=== PATIENT | female | born 1970 | race Caucasian/White ===

== ENCOUNTER 2017-07-14 22:59 | Emergency (ER) | payer OTHER ==
[~2017-07-14] VITALS: Ht 170.2 cm; Wt 62.0 kg
[~2017-07-14 22:59] MED LIST: DICL50 PO; LORA-474 PO; NAPR550 PO; ROBA750T3 PO; TRAM50TA PO
[2017-07-14 23:02] VITALS: BP 136/63; PULSE 59; RESP 16; TEMP 97.9; O2SAT 100
--- NOTE | 2017-07-14 23:28 | PD ---
HPI Chief Complaint: Fall Time Seen by Provider: 23:20 Travel History International Travel<30 days: No Contact w/Intl Traveler<30days: No Traveled to known affect area: No History of Present Illness HPI 46-year-old female here with left arm pain. She slipped on wet floor and fell on outstretched left hand prior to arrival. She has pain primarily in her left wrist but radiates up the left forearm and up to the left shoulder. Pain is worse with movement. No other injuries. PFSH Past Medical History Diminished Hearing: No Musculoskeletal: Yes (BACK PAIN) Social History Alcohol Use: Yes Tobacco Use: Yes Substance Use: No Allergies-Medications (Allergen,Severity, Reaction): Coded Allergies: No Known Allergies (Verified , 08/03/16) Reported Meds & Prescriptions Reported Meds & Active Scripts Active Lortab (Hydrocodone-Acetaminophen) 5-325 Mg Tab 1 Tab PO Q6H PRN Review of Systems Except as stated in HPI: all other systems reviewed are Neg Physical Exam Narrative GENERAL: Well-nourished female in no acute distress SKIN: Warm and dry. HEAD: Atraumatic. Normocephalic. EYES: Pupils equal and round. No scleral icterus. No injection or drainage. ENT: No nasal bleeding or discharge. Mucous membranes pink and moist. NECK: Trachea midline. No JVD. CARDIOVASCULAR: Regular rate and rhythm. No murmur appreciated. RESPIRATORY: No accessory muscle use. Clear to auscultation. Breath sounds equal bilaterally. MUSCULOSKELETAL: Tender to palpation left wrist. There is some soft tissue swelling. There is pain with range of motion of the left wrist limiting range of motion. Distal sensation is intact. 2+ radial pulse. No tenderness to palpation of the left elbow, proximal arm or shoulder. NEUROLOGICAL: Awake and alert. No obvious cranial nerve deficits. Motor grossly within normal limits. Normal speech. Data Data Last Documented VS Vital Signs Date Time Temp Pulse Resp B/P (MAP) Pulse Ox O2 Delivery O2 Flow Rate FiO2 07/14/17 23:02 97.9 59 16 136/63 (87) 100 Room Air Orders Orders Wrist, Complete (Ppi7guu) (07/14/17 ) Ice/Cold Pack (07/14/17 23:25) Elbow, Limited (Ap&Lat) (07/14/17 ) Mandatory Outpatient Referral (07/14/17 23:59) Splint Or Brace Apply/Monitor (07/14/17 23:59) Acetamin-Hydrocod 325-5 Mg (Arden 5-325 (07/15/17 00:00) Ondansetron Odt (Zofran Odt) (07/15/17 00:00) [facility] Medical Decision Making Medical Screen Exam Complete: Yes Emergency Medical Condition: Yes Medical Record Reviewed: Yes Differential Diagnosis Fracture, dislocation, sprain, strain, contusion Narrative Course X-ray imaging reveals a slightly comminuted and angulated has already is fracture. A sugar tong splint will be applied. Mandatory outpatient referral for outpatient follow-up with orthopedic surgeon will be provided. Stable for discharge. Diagnosis Primary Impression: Left wrist fracture Qualified Codes: S62.102A - Fracture of unspecified carpal bone, left wrist, initial encounter for closed fracture Referrals: Jefry Rodgers Jr., MD Additional Instructions: Do not remove the splint. Pain medication as needed. Do not drive or drink alcohol when taking this medication. Follow-up with an orthopedist such as Dr. Rodgers in the next 3-5 days. Return for any emergent medical conditions. Med/Other Pt SpecificInfo: Prescription(s) given, Orthopedic Instructions Scripts Hydrocodone-Acetaminophen (Lortab) 5-325 Mg Tab 1 TAB PO Q6H Y for PAIN, #15 TAB 0 Refills Prov: Anju Patel DO 07/15/17 Disposition: 01 DISCHARGE HOME Condition: Stable Sohail Pulido Jul 14, 2017 23:28
[2017-07-15] MEDS ORDERED: ONDANSETRON ODT 4 MG TAB PO ONE
[2017-07-15] MEDS ORDERED: ACETAMINOPHEN/HYDROcodone 325 MG/5 MG TAB PO ONE
[2017-07-15] MEDS ORDERED: HYDR-3533 PO (00:01)
--- NOTE | 2017-07-15 00:12 | RADRPT ---
EXAM DATE/TIME: 07/14/2017 23:37 [facility] COMPARISON: No previous studies available for comparison. INDICATIONS : Pt fell at work, landed on left wrist MEDICAL HISTORY : None. SURGICAL HISTORY : None. ENCOUNTER: Initial ACUITY: 1 day PAIN SCORE: 10/10 LOCATION: Left Wrist FINDINGS: There is a slightly comminuted mildly displaced fracture of the distal radius with apex anterior angu lation. There is no dislocation at the wrist joint. There is overlying soft tissue swelling. No fract ures identified. CONCLUSION: 1. Slightly comminuted intra-articular fracture of the distal left radius. No dislocation. James Izaguirre MD on July 15, 2017 at 0:08 Board Certified Radiologist. This report was verified electronically.
--- NOTE | 2017-07-15 00:14 | RADRPT ---
EXAM DATE/TIME: 07/14/2017 23:40 [facility] COMPARISON: No previous studies available for comparison. INDICATIONS : Pt fell at work, landed on left wrist MEDICAL HISTORY : None. SURGICAL HISTORY : None. ENCOUNTER: Initial ACUITY: 1 day PAIN SCORE: 5/10 LOCATION: Left Elbow FINDINGS: Two view examination of the left elbow demonstrates no soft tissue swelling, joint effusion, fracture or dislocation. Bony mineralization is normal. CONCLUSION: Normal examination for a patient of this age. James Izaguirre MD on July 15, 2017 at 0:10 Board Certified Radiologist. This report was verified electronically.
== END 2017-07-15 01:20 | disposition home or self-care (01) ==
LOC: NEPD 22:59
DX: S62.102A Fracture of unspecified carpal bone, left wrist, initial encounter for closed fracture (principal); W01.0XXA Fall on same level from slipping, tripping and stumbling without subsequent striking against object, initial encounter; F17.290 Nicotine dependence, other tobacco product, uncomplicated
CPT/HCPCS: 29125; 73070; 73110

== ENCOUNTER 2017-07-17 16:55 | Emergency (ER) | payer OTHER ==
[~2017-07-17] VITALS: Ht 170.2 cm; Wt 66.0 kg
[~2017-07-17 16:55] MED LIST changes: -DICL50 PO; +HYDR-3533 PO; -LORA-474 PO; -NAPR550 PO; -ROBA750T3 PO; -TRAM50TA PO
[2017-07-17 16:58] VITALS: BP 120/70; PULSE 72; RESP 20; TEMP 98.7; O2SAT 99
--- NOTE | 2017-07-17 20:08 | PD ---
HPI Chief Complaint: Injury Time Seen by Provider: 20:04 Travel History International Travel<30 days: No Contact w/Intl Traveler<30days: No Traveled to known affect area: No History of Present Illness HPI 46-year-old white female presents to emergency Department with complaints of swelling of her left hand after sustaining a left wrist fracture on 07/14/17. The patient slipped and fell at work. She states that she is working with [employer] to get into orthopedics. She states that she has enough pain medicine for the next few days. She denies any numbness or tingling. She does states she has difficulty moving her fingers due to swelling and pain. She feels that the splint is too tight. PFSH Past Medical History Arthritis: Yes Diminished Hearing: No Herniated Disk: Yes (l3-l4,compressed thoracic) Musculoskeletal: Yes (BACK PAIN) LMP: 07/08/17 Social History Alcohol Use: Yes Tobacco Use: Yes Substance Use: No Allergies-Medications (Allergen,Severity, Reaction): Coded Allergies: No Known Allergies (Verified , 08/03/16) Reported Meds & Prescriptions Reported Meds & Active Scripts Active Lortab (Hydrocodone-Acetaminophen) 5-325 Mg Tab 1 Tab PO Q6H PRN Review of Systems Except as stated in HPI: all other systems reviewed are Neg Physical Exam Narrative GENERAL: This is a well-nourished, well-developed patient, in no apparent distress. SKIN: No rashes, ecchymoses or lesions. Warm and dry. HEAD: Atraumatic. Normocephalic. EYES: PERRL, EOMI, no discharge or injection. No scleral icterus. EARS: Clear NOSE: Nasal turbinates appear normal. THROAT: Mucosa pink and moist. Airway patent. NECK: Trachea midline. supple, moves head freely. LUNGS: Clear to auscultation. CV: Regular in rhythm. ABDOMEN: Soft nontender. EXT: No clubbing cyanosis or edema. Patient has a sugar tong splint on the left arm. The splint appears to be appropriate. She has dependent post fracture edema in the hand. This is normal. The splint is taken down and the soft roll is not constricting. I see no evidence of any skin breakdown. She is able to move her fingers. She has intact gross sensation. The splint is reapplied. Data Data Last Documented VS Vital Signs Date Time Temp Pulse Resp B/P (MAP) Pulse Ox O2 Delivery O2 Flow Rate FiO2 07/17/17 16:58 98.7 72 20 120/70 (87) 99 Room Air MDM Medical Decision Making Medical Screen Exam Complete: Yes Emergency Medical Condition: Yes Medical Record Reviewed: Yes Differential Diagnosis MDM: High Differential diagnoses: Fracture, sprain, strain, dislocation, contusion, neurovascular injury, splint care/fracture care Narrative Course The patient splint does not appear to be too tight. She has dependent edema in her hand from hanging down a nurse sling. I have expressed to her she needs to keep her arm up and elevated above the level of heart. Having her hand in the sling is not appropriate enough to help prevent swelling. Her splint has been taken off and reapplied by myself. Does not appear to be too constricting at this time. The patient does state she feels better. The patient states that she has enough pain medication at this time. This is left wrist fracture recheck, splint manipulation Diagnosis Primary Impression: left wrist fracture recheck Additional Impression: splint manipulation Patient Instructions: General Instructions Additional Instructions: Rest. Elevation above the heart at all times. May apply ice for additional swelling and pain. Continue take her pain medication as directed. May also take an additional ibuprofen. No work for the next 4 days. Follow-up with orthopedics in the next 1 -4 days Return to the ER for any problems. Disposition: 01 DISCHARGE HOME Condition: Stable James Jean Jul 17, 2017 20:08
== END 2017-07-17 20:13 | disposition home or self-care (01) ==
LOC: NEPK 16:55
DX: S62.102D Fracture of unspecified carpal bone, left wrist, subsequent encounter for fracture with routine healing (principal); W01.0XXD Fall on same level from slipping, tripping and stumbling without subsequent striking against object, subsequent encounter
CPT/HCPCS: 99283

== ENCOUNTER → 2017-10-28 | Day surgery (SDC) | payer OTHER ==
--- NOTE | 2017-10-25 11:42 | TH ---
cc: MILES LARIOS M.D. DATE: DATE OF : 1970 PROCEDURE TO BE PERFORMED Revision augmentation mastopexy. HISTORY OF PRESENT ILLNESS Ms. Preeti Ojeda is a pleasant 45-year-old female who back in November of last year underwent a mastopexy augmentation. She also at the time had a thigh lift. She has done well. She wishes to go a little bigger on her breast volume the reason for which we are going to put 415 cc SRF from the current 265 cc. PAST MEDICAL HISTORY Unremarkable except for a compressed disc at T9. MEDICATIONS Tramadol. ALLERGIES No allergies. HABITS Benign. REVIEW OF SYSTEMS Unremarkable. PHYSICAL EXAMINATION GENERAL APPEARANCE: The patient is a well-developed female in no acute distress. Body habitus is within normal limits. There appear to be no deformities. Appears to have attention to grooming. HEENT: Conjunctiva and lids are within normal anatomical limits. The pupils are reactive to light and accommodation, size and symmetry. There is no evidence of exudate, hemorrhage, or vessel change. The external inspection of the ears and nose fails to demonstrate any pathology, scars, lesions, or masses. Nasal mucosa, septum, and turbinates appear to be well-hydrated as well as the lips and gums. No evidence of masses in the hypopharynx or submental area. CHEST: The patient shows no evidence of intercostal retractions. LUNGS: Clear to auscultation without any abnormal sounds or rubs. CARDIOVASCULAR: The patient has a normal heart rate and rhythm. There is no evidence of noted carotid bruits. Femoral pulses and pedal pulses in the extremities are also within normal limits. ABDOMEN: Soft with no evidence of masses or tenderness. Unable to palpate the liver or spleen. No evidence of hernia. MUSCULOSKELETAL: Appears to be reasonable range of motion of the head, neck, spine, ribs, pelvis, right upper extremity, left upper extremity, right lower extremity, and left lower extremity. The muscle strength and tone appears to be equal and within accepted limits. SKIN: There are no rashes, lesions, or ulcers on the trunk, back or extremities. NEUROLOGICAL: Examination is grossly normal. PSYCHIATRIC: The patient appears to have good orientation of time, place, and person. Does not appear to have any mood affects of depression, anxiety, or agitation. BREASTS: Well-healed mammoplasty incisions. No evidence of pathology. PLAN As above. MD GERRI Xavier/JOSE /11:23 AM /11:31 AM
[~2017-10-28] MED LIST changes: +ACETAMINOPHEN 1000 MG/100 ML 100 ML IV ONE; +BACITRACIN IM FOR SOLN 50,000 UNIT VIAL ONE; +BUPIVACAINE/EPINEPHRINE 0.25% PF 30 ML VIAL ONE; +GENTAMICIN SULFATE 80 MG/2 ML VIAL ONE; +LACTATED RINGER'S 1000 ML INJ 0 ML ONE; +LIDOCAINE 1.5%/EPINEPHrine 1:200,000 PF SOLN 30 ML AMP ONE; +MIDAZOLAM HCL 2 MG/2 ML VIAL ONE; +SODIUM CHLORIDE 0.9% 20 ML VIAL ONE; +ceFAZolin INJ 1,000 MG VIAL ONE
== END | disposition home or self-care (01) ==
LOC: ESDC 06:22
PROVIDERS: ATTEND Plastic Surgery
DX: Z41.1 Encounter for cosmetic surgery (principal); Z53.8 Procedure and treatment not carried out for other reasons
CPT/HCPCS: J0131; J0690; J1580; J2250; J7120

== ENCOUNTER → 2017-10-30 | Day surgery (SDC) | payer OTHER ==
[~2017-10-30] MED LIST changes: +ACETAMINOPHEN/HYDROcodone 325 MG/5 MG TAB ONE; +KETOROLAC TROMETHAMINE 30 MG/ML (IVP) VIAL ONE; -LACTATED RINGER'S 1000 ML INJ 0 ML ONE; +LACTATED RINGER'S 1000 ML INJ 1,000 ML ONE; +MEPERIDINE HCL 25 MG/ML VIAL ONE; +ONDANSETRON HCL 4 MG/2 ML VIAL IV PUSH ONE; +PROPOFOL 200 MG/20 ML AMP IV ONE
--- NOTE | 2017-10-30 08:42 | TN ---
cc: RENNY KAMARA M.D. DATE OF SURGERY 10/30/2017 PREOPERATIVE DIAGNOSIS Status post augmentation mastopexy with further laxity, deformity and unhappiness in volume. PROCEDURE Removal, replacement of implant with two hawkins lateral and inferior capsulorrhaphies. SURGEON Renny Kamara MD/KRISHAN ANESTHESIA [facility] general, also utilized 30 cc of 1% lidocaine with epinephrine mixed with 0.25% Marcaine in a 2:1 ratio. IMPLANT DATA The patient is exchanged to the [facility] 415, serial number [id number] and the left breast implant device, serial number is [id number]. PROCEDURE IN DETAIL She was properly consented, marked, and properly anesthetized. The skin was sterilized with Betadine solution and sterile draping applied. Local anesthetic infiltrated. Through the center inferior pedicle incision, the pocket was encountered, the implant was removed. Irrigation with antibiotics took place. Isolation of the nipple-areolar complex was done from the very beginning. A lateral inferior capsulorrhaphy took place on the right breast and lateral capsulorrhaphy was done on the left breast. I utilized a 0-silk in a running locking fashion. The implant was introduced. The patient was sat up and blunt touches were done to assure best symmetry possible and assuring the best symmetry, the wounds were closed using 2-0 Monocryl suture in layers in the pocket capsule, breast parenchyma, dermis and skin. Prineo Dermabond was applied. The patient tolerated the procedure well, was awakened, extubated in operating room and transferred back to postanesthesia care unit in stable condition. No complications appreciated. The patient tolerated the procedure fairly well. MD GERRI Xavier/MATHEW /8:04 AM /8:22 AM
== END | disposition home or self-care (01) ==
LOC: ESDC 06:09
PROVIDERS: ATTEND Plastic Surgery
DX: Z41.1 Encounter for cosmetic surgery (principal)
CPT/HCPCS: 00400; 00402; 19316; 19325; 19328; C1789; J0131; J0690; J1580; J1885; J2175; J2250; J2405; J3010; J7120